=== PATIENT | female | born 1985 | race Caucasian/White ===

== ENCOUNTER 2016-05-12 20:35 | Inpatient (IN) | payer OTHER ==
[2016-05-12] MEDS ORDERED: DEXTROSE 5%-LACTATED RINGERS 1,000 ML IV SCH (23:20)
[2016-05-12] MEDS ORDERED: BUTORPHANOL TARTRATE 1 MG/ML VIAL IVPB ONE (23:30)
[2016-05-12] MEDS ORDERED: PROMETHAZINE HCL 25 MG/1 ML VIAL IVPUSH ONE (23:30)
[2016-05-12 23:34] LABS: BASOPHIL 0.2 % (0-2.0); EOSINOPHIL 0.3 % (0-4.5); MCHC 34.3 g/dl (32.0-36.0); MEAN CELL VOLUME 96.1 fl (80-96); NEUTROPHILS 70.7 % (42.8-82.8); PLATELET COUNT 167 K/MM3 (134-434); RDW 13.1 % (11.6-15.6)
--- NOTE | 2016-05-13 00:01 | HP ---
Past Medical History - Primary Care Physician PCP:: Adriana Roberts - Admission Chief Complaint: 30 yrs ,39.6 weeks gestation admitted in labor, onset at 5.30 pm 05/12/16. previous c/s followed by History of Present Illness: Pnc at 3, [facility] wt gain 33 lbs work Up , B pos, Rpr nr, Rubella pos, Sickle neg , 1 hr Gtt97, Hiv neg , Gbs neg Hbsag -reactive, Hbsag ,confirmatory test is labeled non reactive ID consult ,done By Dr Oliveros at 14 weeks gestation, reported as Hepatiitis B carrier, other tests were done by him , results were not seen in the consult report recommend infant to be given Hep vaccine & Hep immunoglobulin Quantiferon pos, Chest X ray done reported, no active pulm disease pt was given tdap vaccine in 02/2016 & influenza vaccine in 01/2016 us done by M for growth. NT screen & Modified sequential was neg last sono 03/25/16 33.1/7 weeks, 35 %tile growth, Efw 1865 gm(4'2'), Afi13.01 , Bpp8/8 . 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 No h/o Hepatitis in previous pregn ID consult with Dr Oliveros obtained.during pregn) ...: 7 ...Para: 3 ...Term: 3 ...Spon : 1 ...Induced : 2 ...LMP: 08/07/15 ... Weeks Gestation by Dates: 39.6 ...EDC by Dates: 05/13/16 ...EDC by Sono: 05/14/16 Additional OB History: G1 01/17/2005 40 weeks 6lbs [facility] G2 08/06/2006 Primary lftc/s 40 weeks 7 ' [facility] G3 08/15/2009 40 wks 6' [facility] Infectious Disease: No: STD's Psych: No: Addictions, Anxiety, Bipolar, Depression Endocrine: No: Diabetes Mellitus, Hyperthyroidism, Hypothyroidism - Past Surgical History Past Surgical History: Yes: (08/06/2006) Hx Myomectomy: No Hx Transabdominal Cerclage: No - Smoking History Smoking history: Never smoked - Alcohol/Substance Use Hx Alcohol Use: No History of Substance Use: reports: None Home Medications - Allergies Allergies/Adverse Reactions: Allergies Allergy/AdvReac Type Severity Reaction Status Date / Time No Known Allergies Allergy Verified 05/12/16 22:08 - Home Medications Home Medications: Ambulatory Orders Abacavir/Dolutegravir/Lamivudi [Triumeq Tablet] 1 each PO DAILY #30 tablet 11/25 Valsartan/Hydrochlorothiazide [Valsartan-Hctz 320-12.5 mg Tab] 1 each PO DAILY # 30 tablet 11/26/15 Physical Exam - Maternity Vital Signs: Vital Signs Temperature 98.3 F 05/12/16 21:50 Pulse Rate 73 05/12/16 21:50 Respiratory Rate 20 05/12/16 21:50 Blood Pressure 129/71 05/12/16 21:50 O2 Sat by Pulse Oximetry (%) Constitutional: Yes: Well Nourished, Anxious, Moderate Distress Eyes: Yes: WNL HENT: Yes: WNL, Normocephalic Neck: Yes: WNL Cardiovascular: Yes: WNL, Regular Rate and Rhythm Lungs: Clear to auscultation Breast(s): Yes: WNL - Abdominal Exam/OB Fundal Height: 34 Number of Fetuses: Single Presentation: Vertex Contractions: Yes Regularity: Regular (3-4 min) Intensity: Mod/Strong Monitor Mode: External Heart Rate (range): 150-160 Heart Rate Location: [facility] Category: I Accelerations: Uniform Decelerations: None - Vaginal Exam/OB Vaginal Bleediing: Bloody Show Speculum Exam: No Dilatation (cm): 4 Effacement (%): 90 Amniotic Membrane Status: Intact Presentation: Vertex/Position (exam at 10.45 pm 05/12/16) Station: -1 (-2/-1) - Physical Exam Musculoskeletal: Yes: WNL Extremities: Yes: WNL. No: Calf Tenderness Edema: LLE: 2+, RLE: 2+ Integumentary: Yes: Incision (old pfannensteil scar), Tattoos Deep Tendon Reflex Grade: Normal +2 ...Motor Strength: WNL Psychiatric: Yes: WNL, Alert, Oriented - Labs Lab Results: CBC, BMP 05/12/16 23:15 Laboratory Tests 05/12/16 23:15 Sodium 139 Potassium 4.0 Chloride 104 Carbon Dioxide 21 BUN 11 D Creatinine 0.6 Random Glucose 69 L Calcium 9.3 Problem List - Problems (1) 40 weeks gestation of Code(s): Z3A.40 - 40 WEEKS GESTATION OF (2) Previous section complicating Code(s): O34.21 - MATERNAL CARE FOR SCAR FROM PREVIOUS * DO NOT USE * (3) (vaginal after ) Code(s): O34.21 - MATERNAL CARE FOR SCAR FROM PREVIOUS * DO NOT USE * (4) Labor established Code(s): VMY0361 - Assessment/Plan 30 yrs , 39.6 weeks , previous c/s & , in active labor , GBS neg pt is aware of r/b/a not ltd to hemorrhage , infection , distress etc She wants TOLAC Plan stadol + phenrgan for labor analgesia prn
[2016-05-13 00:11] LABS: CALCIUM 9.3 mg/dL (8.5-10.1); CREATININE 0.6 mg/dL (0.55-1.02)
[2016-05-13 00:22] VITALS: BMI 35.9
[2016-05-13 00:27] LABS: INR 0.96 (0.82-1.09); PROTHROMBIN TIME (PATIENT) 10.6 SEC (9.98-11.88)
--- NOTE | 2016-05-13 01:09 | PN ---
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
[2016-05-13] MEDS ORDERED: BENZOCAINE 20% 57 GM BOTTLE TP PRN (01:10)
[2016-05-13] MEDS ORDERED: METHYLERGONOVINE MALEATE 0.2 MG/1 ML AMP IM PRN (01:10)
[2016-05-13] MEDS ORDERED: BENZOCAINE 28 GM HEMORRHOIDAL OINTMENT TP PRN (01:10)
[2016-05-13] MEDS ORDERED: oxyCODONE HCL 5 MG TABLET PO PRN (01:10)
[2016-05-13] MEDS ORDERED: WITCH HAZEL 50% (TUCKS) 40 PAD/JAR PAD TP PRN (01:10)
[2016-05-13] MEDS ORDERED: BISACODYL 10 MG SUPP.RECT RC PRN (01:10)
[2016-05-13] MEDS ORDERED: D5W-LR W/ 20 UNITS OXYTOCIN 1,000 ML IV SCH (01:15)
[2016-05-13] MEDS: ACETAMINOPHEN 325 MG TABLET (FP) PO PRN ×3 (02:10→20:34)
[2016-05-13] MEDS: IBUPROFEN 600 MG TABLET (FP) PO PRN ×2 (08:21→20:32)
[2016-05-13 09:08] LABS: ALBUMIN 3.2 g/dl (3.4-5.0); BILIRUBIN,DIRECT 0.2 mg/dL (0.0-0.2); BILIRUBIN,TOTAL 0.6 mg/dL (0.2-1.0)
[2016-05-13] MEDS: PRENATAL VITAMINS W/ FOLIC ACID TABLET (FP) PO SCH (10:20)
--- NOTE | 2016-05-13 10:24 | PN ---
Progress Note (short form) - Note Progress Note: PPD #0 c/o cramps, vaginal bleeding moderate Ut firm below umblicus, non tender pt wishes to breast feed , lactational pmo consultant notified, she will look into it v/s stable Selected Entries 05/13/16 08:19 Temperature 97.8 F Pulse Rate 62 Blood Pressure 121/77 Ct pp care Problem List - Problems (1) 40 weeks gestation of Code(s): Z3A.40 - 40 WEEKS GESTATION OF (2) Previous section complicating Code(s): O34.21 - MATERNAL CARE FOR SCAR FROM PREVIOUS * DO NOT USE * (3) (vaginal after ) Code(s): O34.21 - MATERNAL CARE FOR SCAR FROM PREVIOUS * DO NOT USE * (4) Labor established Code(s): [id number] -
[2016-05-13] MEDS: FERROUS SO4 325 MG TABLET (FP) PO SCH ×2 (10:30→17:55)
[2016-05-14 07:11] LABS: BASOPHIL 0.5 % (0-2.0); EOSINOPHIL 1.5 % (0-4.5); MCH 33.5 pg (25.7-33.7); MCHC 34.7 g/dl (32.0-36.0); MEAN CELL VOLUME 96.5 fl (80-96); MEAN PLT VOLUME 9.5 fl (7.5-11.1); NEUTROPHILS 61.1 % (42.8-82.8); PLATELET COUNT 132 K/MM3 (134-434); RDW 13.2 % (11.6-15.6); WHITE BLOOD COUNT 10.9 K/mm3 (4.0-10.0)
[2016-05-14] MEDS: FERROUS SO4 325 MG TABLET (FP) PO SCH ×2 (08:28→17:21)
--- NOTE | 2016-05-14 08:36 | PN ---
Post Progress Note - Subjective Subjective: doing well, resting and will breast feed Post Day: 1 Type of Delivery: Vital Signs: Vital Signs Temperature 97.8 F 05/14/16 01:00 Pulse Rate 72 05/14/16 01:00 Respiratory Rate 18 05/14/16 01:00 Blood Pressure 112/56 05/14/16 01:00 O2 Sat by Pulse Oximetry (%) 100 05/13/16 01:30 Breast Exam: Yes: Soft Uterus: Yes: Fundus Firm Abdomen/GI: Yes: Abdomen soft Lochia: Yes: Rubra Lochia, amount: Small Extremities: Yes: Calves non-tender Activity: Ambulating - Labs Labs: CBC WBC 10.9 K/mm3 (4.0-10.0) H 05/14/16 06:00 RBC 3.32 M/mm3 (3.60-5.2) L 05/14/16 06:00 Hgb 11.1 GM/dL (10.7-15.3) D 05/14/16 06:00 Hct 32.0 % (32.4-45.2) L D 05/14/16 06:00 MCV 96.5 fl (80-96) H 05/14/16 06:00 MCHC 34.7 g/dl (32.0-36.0) 05/14/16 06:00 RDW 13.2 % (11.6-15.6) 05/14/16 06:00 Plt Count 132 K/MM3 (134-434) L D 05/14/16 06:00 MPV 9.5 fl (7.5-11.1) 05/14/16 06:00 Neutrophils % 61.1 % (42.8-82.8) 05/14/16 06:00 Lymphocytes % 30.8 % (8-40) D 05/14/16 06:00 Monocytes % 6.1 % (3.8-10.2) 05/14/16 06:00 Eosinophils % 1.5 % (0-4.5) D 05/14/16 06:00 Basophils % 0.5 % (0-2.0) 05/14/16 06:00 Assessment/Plan oob reg diet continue care
[2016-05-14 09:57] VITALS: BP 108/65; PULSE 75; TEMP 97.7
[2016-05-14] MEDS: PRENATAL VITAMINS W/ FOLIC ACID TABLET (FP) PO SCH (10:14)
--- NOTE | 2016-05-14 12:57 | DS ---
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 No: Calf Tenderness Edema: Yes Edema: LLE: Trace, RLE: Trace Integumentary: Yes: WNL, Tattoos Neurological: Yes: WNL, Alert, Oriented ...Motor Strength: WNL Psychiatric: Yes: WNL, Alert, Oriented Labs: CBC, BMP 05/14/16 06:00 05/12/16 23:15 Delivery - Delivery Vaginal Delivery: No Problems, V-Wade Type of Anesthesia: None Episiotomy/Laceration: None EBL (cc): 300 Delivery, Single - Stages of Labor Date 1st Stage Initiatied: 05/12/16 Time 1st Stage Initiated: 17:30 Date 2nd Stage Initiated: 05/13/16 Time 2nd Stage Initiated: 00:40 Date of Delivery: 05/13/16 Time of Delivery: 00:45 Time Placenta Delivered: 00:50 Placenta: Yes: Spontaneous, Uterine Exploration (ut intact & empty) - Condition of Infant Java Sybase Developer/Pneumatic Drum Sander Present: No Gender: Female Weight: 6 lb 6 oz Position: Left, OA Total Hours ROM (Hrs/Mins): 10mins - 1 Minute Total Score: 9 5 Minutes Total Score: 9 - [place] Feeding Plan Initial Plan: Elected not to breastfeed exclusively throughout hospitalization Remarks - Remarks Remarks: 30 yrs , previous c/s & , 40 weeks gestation today admitted in active labor GBS neg HBSAg pos , ID consult was done, diagnose Hepatitis carrier will be given hep vaccine & immunoglobulin intrapartum stadol + phenrgan was given for labor analgesia intrapartum course uneventful . pp course uneventful discharge today in evening Discharge Summary Reason For Visit: LABOR ADMIT Current Active Problems 40 weeks gestation of (Acute) Labor established (Acute) Previous section complicating (Acute) (vaginal after ) (Acute) Condition: Stable - Instructions Diet, Activity, Other Instructions: Post Instructions DIET: Continue good diet high in protein, calcium, and iron rich foods. Drink at least eight (8) glasses of water daily in addition to other fluids. Regular diet MEDICATIONS: Continue vitamins and iron as previously directed. Motrin and Tylenol may be taken for minor discomfort. ACTIVITY: Mild to moderate exercise may be started in two (2) weeks. Take frequent rest periods. Resume normal activity after six (6) week check up. WOUND CARE OF OPERATIVE SITE: Continue use of perineal bottle until vaginal discharge stops. Keep area clean. Shower daily. Keep abdominal wound dry. Report any drainage or redness to physician. Tub baths, tampons and douches are not permitted for [address] Breast feeding & or Bottle feeding BREAST CARE: (For those that are not breast feeding): If engorgement occurs: Wear tight fitting bra. Take Tylenol or Motrin for pain. Apply cold packs (ice in bags to each breast ) FAMILY PLANNING: There are many control alternatives to pursue and they should be discussed at your first office visit. You may resume sexual activity after your six (6) week check up. (Remember, breast feeding is not a contraceptive) NEXT PHYSICIAN APPOINTMENT: Be certain to call for a six (6) week appointment, unless otherwise directed. Call Clinic or got to Emergency Dept if you have any of the following: Heavy vaginal bleeding Painful urination Leg pain Unusual odor noted to vaginal bleeding High fever Red streaking noted on breast Referrals: Adriana Roberts MD [Staff Physician] - Disposition: HOME - Home Medications Comprehensive Discharge Medication List: Ambulatory Orders Vitamins (Sjr) - 1 tab PO DAILY 05/13/16 Acetaminophen [Tylenol .Regular Strength -] 650 mg PO Q3H PRN #0 tablet Ferrous Sulfate [Feosol] 325 mg PO BIDWM ud 05/14/16 Ibuprofen [Motrin -] 200 mg PO Q4H PRN #0 tablet 05/14/16 Vitamins (Sjr) - 1 tab PO DAILY tablet 05/14/16
[2016-05-14] MEDS ORDERED: SENNOSIDES/DOCUSATE COMBO (SENNA PLUS) TABLET (UD) PO PRN (22:00)
[2016-05-19 14:19] LABS: HEP B SURFACE AB Reactive (.)
== END 2016-05-14 18:40 | disposition home or self-care (01) | DRG 560 ==
LOC: JDEL 20:35 → JLDR 22:50 → J3W 05-13 02:22
PROVIDERS: ADMIT Obstetrics & Gynecology; ATTEND Obstetrics & Gynecology
PROC: 10E0XZZ Delivery of Products of Conception, External Approach (ICD-10-PCS; principal; 2016-05-13)
DX: O34.219 Maternal care for unspecified type scar from previous cesarean delivery (principal); Z3A.40 40 weeks gestation of pregnancy; Z37.0 Single live birth
CPT/HCPCS: 36415; 59409; 80048; 80076; 85025; 85610; 85730; 86593; 86704; 86705; 86706; 86707; 86850; 86900; 86901; 87350; 87517

== ENCOUNTER 2019-10-19 07:00 | Inpatient (IN) | payer OTHER ==
[2019-10-19] MEDS ORDERED: ELECTROLYTE-148 SOLN 1,000 ML IV SCH ×2 (09:15→09:30)
[2019-10-19] MEDS ORDERED: BUTORPHANOL TARTRATE 1 MG/ML VIAL IVPB ONE (09:24)
[2019-10-19] MEDS ORDERED: PROMETHAZINE HCL 25 MG/1 ML VIAL IVPB ONE (09:24)
[2019-10-19 09:27] VITALS: BMI 35.2
[2019-10-19 10:10] LABS: BASO % 0.3 % (0-2.0); EOS % 0.3 % (0-4.5); HEMATOCRIT 38.7 % (32.4-45.2); HEMOGLOBIN 13.1 GM/dL (10.7-15.3); LYMPH % 18.3 % (8-40); MCH 33.1 pg (25.7-33.7); MCHC 33.9 g/dl (32.0-36.0); MEAN CELL VOLUME 97.5 fl (80-96); MEAN PLT VOLUME 10.5 fl (7.5-11.1); MONO % 4.5 % (3.8-10.2); NEUT % 76.6 % (42.8-82.8); PLATELET COUNT 141 K/MM3 (134-434); RBC 3.97 M/mm3 (3.60-5.2); RDW 13.3 % (11.6-15.6); WHITE BLOOD COUNT 11.2 K/mm3 (4.0-10.0)
[2019-10-19 10:11] LABS: INR 0.91 (0.83-1.09); PROTHROMBIN TIME (PATIENT) 10.7 SEC (9.7-13.0)
[2019-10-19] MEDS ORDERED: PROMETHAZINE HCL 25 MG/1 ML VIAL ONE (10:11)
[2019-10-19] MEDS ORDERED: BUTORPHANOL TARTRATE 2 MG/ML VIAL ONE (10:11)
[2019-10-19 10:14] LABS: ACTIVATED PTT 26.4 SECONDS (25.2-36.5)
[2019-10-19] MEDS ORDERED: LIDOCAINE HCL 1% PRESERVATIVE FREE - 30ML VIAL ONE (10:22)
[2019-10-19] MEDS ORDERED: OXYTOCIN 20 UNITS in 0.9% NS 20 UNIT/1,000 ML INFUS.BAG IV ONE ×2 (10:23→13:22)
[2019-10-19 10:26] LABS: BLOOD UREA NITROGEN 11.9 mg/dL (7-18); CALCIUM 9.3 mg/dL (8.5-10.1); CREATININE 0.7 mg/dL (0.55-1.3)
--- NOTE | 2019-10-19 11:33 | HP ---
Past Medical History - Primary Care Physician PCP:: Adriana Roberts - Admission Chief Complaint: 34 yrs ,previous c/s f/b 2 , onset LP since 6.30 AM , requests for TOLAC History of Present Illness: pnc at 2, [facility] , wt gain 40 lbs panel : 03/16/19 B Pos, hbsag neg, rubella pos, hiv neg , t,pallidum neg , sickle neg , hep c nr 07/31/19 1r gtt 93 ,Quantiferon -pos 09/21/19 H/H 12.0/34,0. PLT 182, ct/gc neg, GBS neg, hiv neg 10/05/19 TDAP taken. us done report not on chart History Source: Patient, Medical Record Limitations to Obtaining History: No Limitations - Past Medical History STONEMASON: No: CVA, Seizure Cardiovascular: No: HTN Pulmonary: No: Asthma Gastrointestinal: Yes: Constipation Hepatobiliary: Yes: Hepatitis B (Hep BSAg pos on 10/14/2015. No h/o Hepatitis in previous pregn ID consult with Dr Oliveros obtained.during pregn) Renal/: No: UTI ...: 8 ...Para: 4 (G1 [facility]/17/05 6[facility], G2 08/06/06 pc/s fetaldistress [facility] G3 6' [facility]. G4 05/13/16 , 6'6' [facility]) ...Term: 4 ...: 4 ...Spon : 1 ...Induced : 2 ...Living Children: 4 ...LMP: 12/02/18 ... Weeks Gestation by Dates: 40.1 ...EDC by Dates: 10/18/19 ...EDC by Sono: 10/18/19 (40,1 WKS ) Heme/Onc: No: Anemia Infectious Disease: Yes: Other (h/o quantiferon pos). No: AIDS, HIV, STD's Psych: No: Addictions, Anxiety, Bipolar, Depression, Panic, Psychosis, Schizophrenia, Other Endocrine: No: Diabetes Mellitus, Hyperthyroidism, Hypothyroidism - Past Surgical History Past Surgical History: Yes: (08/06/2006) Hx Myomectomy: No Hx Transabdominal Cerclage: No - Smoking History Smoking history: Never smoked Have you smoked in the past 12 months: No - Alcohol/Substance Use Hx Alcohol Use: No History of Substance Use: reports: None Home Medications - Allergies Allergies/Adverse Reactions: Allergies Allergy/AdvReac Type Severity Reaction Status Date / Time No Known Allergies Allergy Verified 05/12/16 22:08 - Home Medications Home Medications: Ambulatory Orders Vitamins (Sjr) - 1 tab PO DAILY 05/13/16 Review of Systems - Review of Systems Constitutional: reports: Other (lbaor pain) Eyes: reports: No Symptoms HENT: reports: No Symptoms Neck: reports: No Symptoms Cardiovascular: reports: No Symptoms Respiratory: reports: No Symptoms Gastrointestinal: reports: No Symptoms Genitourinary: reports: No Symptoms Breasts: reports: No Symptoms Reported Musculoskeletal: reports: No Symptoms Integumentary: reports: No Symptoms Neurological: reports: No Symptoms Endocrine: reports: No Symptoms Hematology/Lymphatic: reports: No Symptoms Psychiatric: reports: No Symptoms Pain Intensity: 9 Physical Exam - Maternity Vital Signs: Vital Signs Temperature 98.6 F 10/19/19 09:13 Pulse Rate 76 10/19/19 09:13 Respiratory Rate 20 10/19/19 09:13 Blood Pressure 120/76 10/19/19 09:13 O2 Sat by Pulse Oximetry (%) Selected Entries 10/19/19 09:11 Weight 205 lb Constitutional: Yes: Well Nourished, Moderate Distress, Obese Eyes: Yes: WNL HENT: Yes: WNL, Normocephalic Neck: Yes: WNL Cardiovascular: Yes: WNL Lungs: Clear to auscultation Breast(s): Yes: WNL - Abdominal Exam/OB Fundal Height: 36 Number of Fetuses: Single Presentation: Vertex Contractions: Yes Regularity: Irregular Intensity: Mod/Strong (1-3) Monitor Mode: External Heart Rate (range): 135-145 Heart Rate Location: [facility] Category: I Accelerations: Non-Uniform Decelerations: None - Vaginal Exam/OB Vaginal Bleeding: No Speculum Exam: No Dilatation (cm): 6 Effacement (%): 90 Amniotic Membrane Status: Intact Presentation: Vertex/Position (exam at 10.09 AM) Station: -1 - Physical Exam Musculoskeletal: Yes: WNL Extremities: Yes: WNL. No: Calf Tenderness Edema: Yes Edema: LLE: 2+, RLE: 2+ Integumentary: Yes: WNL Deep Tendon Reflex Grade: Normal +2 ...Motor Strength: WNL Psychiatric: Yes: WNL, Alert, Oriented - Labs Lab Results: CBC, BMP 10/19/19 09:35 10/19/19 09:35 Laboratory Tests 10/19/19 10/19/19 09:35 09:35 PT with INR 10.70 INR 0.91 PTT (Actin FS) 26.4 Syphilis Serology Non-reactive Hemorrhage Risk Assessment - Risk Factors Medium Risk Factors: Yes: Prior , uterine surgery,or multiple laparotomies Risk Score: 1 Risk Level: Medium Risk Problem List - Problems (1) Post-term , 40-42 weeks of gestation Code(s): O48.0 - POST-TERM (2) Previous section complicating Code(s): O34.21 - MATERNAL CARE FOR SCAR FROM PREVIOUS * DO NOT USE * (3) (vaginal after ) Code(s): O34.21 - MATERNAL CARE FOR SCAR FROM PREVIOUS * DO NOT USE * Assessment/Plan y34 yrs , previous c/section , f/b 2 in active labor, requests for TOLAC . , gbs neg . pt is aware of possible r/b/a not ltd to rupture ut, hemorrhage, infection, distress. Plan ct TOLAC requests for stadol + phenrgan for labor analgeisa
[2019-10-19] MEDS ORDERED: WITCH HAZEL 50% (TUCKS) 40 PAD/JAR PAD TP PRN (12:43)
[2019-10-19] MEDS ORDERED: BENZOCAINE 28 GM HEMORRHOIDAL OINTMENT TP PRN (12:43)
[2019-10-19] MEDS ORDERED: METHYLERGONOVINE MALEATE 0.2 MG/1 ML AMP IM PRN (12:43)
[2019-10-19] MEDS ORDERED: BENZOCAINE 20% 57 GM BOTTLE TP PRN (12:43)
[2019-10-19] MEDS ORDERED: BISACODYL 10 MG SUPP.RECT RC PRN (12:43)
[2019-10-19] MEDS ORDERED: OXYTOCIN 20 UNITS in 0.9% NS 20 UNIT/1,000 ML INFUS.BAG IV SCH (12:45)
[2019-10-19 12:52] LABS: CORD BASE EXCESS -4.6 mmol/L (0-2); CORD HCO3 20.8 mmHg (20-29); CORD PCO2 39.5 mmHg (30-78); CORD pH 7.339 (7.14-7.44)
--- NOTE | 2019-10-19 12:54 | PN ---
Progress Note (short form) - Note Progress Note: 12.05 PM: 9/100/+1 AROM moderate meconium , fhr 130-145 cat-1 , U 2-3 min Selected Entries 10/19/19 09:13 Temperature 98.6 F Pulse Rate 76 Blood Pressure 120/76 10.20 AM :2mg stadol + 25 mg phenrgan stat given 12.10 PM10/100%/VX +2 , pushing Problem List - Problems (1) Post-term , 40-42 weeks of gestation Code(s): O48.0 - POST-TERM (2) Previous section complicating Code(s): O34.21 - MATERNAL CARE FOR SCAR FROM PREVIOUS * DO NOT USE * (3) (vaginal after ) Code(s): O34.21 - MATERNAL CARE FOR SCAR FROM PREVIOUS * DO NOT USE *
--- NOTE | 2019-10-19 13:01 | PN ---
Delivery - Delivery Vaginal Delivery: V-Wade (pt delievered vx, jethro position , suction of mouth & nose done at perineum , before delivery of shoulders. Shoulders delievered without difficulty .. Trivascular cord , cord segment taken for cord gas & cord blood collected . perineum, vagina cx & uterus intact .. ut intermittently relaxed , bimanual massage given ,Methergine IM given at 12.27 PM .bladder catheterized emptied 200 ml urine , ebl 400 ml . MeU done ut intact, empty .) EBL (cc): 400 (cat output 200 ml flako color ) Delivery, Single - Stages of Labor Date 1st Stage Initiatied: 10/19/19 Time 1st Stage Initiated: 06:30 Date 2nd Stage Initiated: 10/19/19 Time 2nd Stage Initiated: 12:10 Date of Delivery: 10/19/19 Time of Delivery: 12:17 Date Placenta Delivered: 10/19/19 Time Placenta Delivered: 12:25 Placenta: Yes: Spontaneous, Uterine Exploration - Condition of Infant Gender: Female Weight: 8 lb Position: Left, OA Total Hours ROM (Hrs/Mins): 20 min mec mod - 1 Minute Total Score: 8 5 Minutes Total Score: 9 - Feeding Plan Initial Plan: Elected not to breastfeed exclusively throughout hospitalization Remarks - Remarks Remarks: 34 yrs , previous c/s followed by successful x2 admitted in labor . GBS neg Pnc at [address] [place] [address] labor analgesia 2mg Stadol+ 25mg phenrgan was given intrapartum course uneventful v/s stable
[2019-10-19] MEDS: FERROUS SO4 325 MG TABLET (FP) PO SCH (17:50)
[2019-10-19] MEDS: IBUPROFEN 600 MG TABLET (FP) PO PRN (18:17)
[2019-10-19] MEDS: ACETAMINOPHEN 325 MG TABLET (FP) PO PRN (18:17)
[2019-10-20] MEDS: IBUPROFEN 600 MG TABLET (FP) PO PRN (00:52)
[2019-10-20] MEDS: ACETAMINOPHEN 325 MG TABLET (FP) PO PRN (00:53)
--- NOTE | 2019-10-20 07:32 | PN ---
Progress Note (short form) - Note Progress Note: ppd 1s/p . doing well, no c/o CBC, BMP 10/19/19 09:35 10/19/19 09:35 Last Vital Signs Temp Pulse Resp BP Pulse Ox 98.7 F 60 18 106/58 L 10/20/19 05:54 10/20/19 05:54 10/20/19 05:54 10/20/19 05:54 abdomen soft, no distension, no cva uterus firm, non tender lochia mild no calf tenderness plan ambulate cbc plan for d/c home in am
[2019-10-20 08:18] LABS: BASO % 0.4 % (0-2.0); EOS % 0.8 % (0-4.5); HEMATOCRIT 31.4 % (32.4-45.2); HEMOGLOBIN 10.9 GM/dL (10.7-15.3); LYMPH % 23.3 % (8-40); MCHC 34.7 g/dl (32.0-36.0); MEAN CELL VOLUME 98.1 fl (80-96); MEAN PLT VOLUME 10.8 fl (7.5-11.1); MONO % 6.1 % (3.8-10.2); NEUT % 69.4 % (42.8-82.8); PLATELET COUNT 122 K/MM3 (134-434); RDW 13.4 % (11.6-15.6); WHITE BLOOD COUNT 10.7 K/mm3 (4.0-10.0)
[2019-10-20] MEDS: FERROUS SO4 325 MG TABLET (FP) PO SCH ×2 (09:06→18:30)
[2019-10-20] MEDS: PRENATAL VITAMINS W/ FOLIC ACID TABLET (FP) PO SCH (09:06)
[2019-10-20] MEDS ORDERED: SENNOSIDES/DOCUSATE COMBO (SENNA PLUS) TABLET (UD) PO PRN (22:00)
--- NOTE | 2019-10-21 06:16 | DS ---
Physical Exam-ORE DIGGER Vital Signs: Vital Signs Temperature 98 F 10/20/19 20:51 Pulse Rate 64 10/20/19 20:51 Respiratory Rate 20 10/20/19 20:51 Blood Pressure 115/70 10/20/19 20:51 O2 Sat by Pulse Oximetry (%) 98 10/20/19 20:51 Constitutional: Yes: Well Nourished, Obese Eyes: Yes: WNL HENT: Yes: WNL Neck: Yes: WNL, Rigid Respiratory: Yes: WNL Gastrointestinal: Yes: WNL ...Rectal Exam: Yes: WNL Renal/: Yes: WNL, Urethral Discharge External Genitalia: Yes: Normal ....Post : Yes: Uterus firm (below umblicus), Uterus non-tender, Moderate lochia rubra Breast(s): Yes: WNL (BF & bottle feeding . breast not engorged) Musculoskeletal: Yes: WNL Extremities: Yes: WNL. No: Calf Tenderness Edema: LLE: Trace, RLE: Trace Neurological: Yes: WNL, Alert, Oriented ...Motor Strength: WNL Psychiatric: Yes: WNL, Alert, Oriented Labs: CBC, BMP 10/20/19 07:21 10/19/19 09:35 Delivery - Delivery Vaginal Delivery: V-Wade (pt delievered vx, jethro position , suction of mouth & nose done at perineum , before delivery of shoulders. Shoulders delievered without difficulty .. Trivascular cord , cord segment taken for cord gas & cord blood collected . perineum, vagina cx & uterus intact .. ut intermittently relaxed , bimanual massage given ,Methergine IM given at 12.27 PM .bladder catheterized emptied 200 ml urine , ebl 400 ml . MeU done ut intact, empty .) Episiotomy/Laceration: None EBL (cc): 400 Delivery, Single - Stages of Labor Date 1st Stage Initiatied: 10/19/19 Time 1st Stage Initiated: 06:30 Date 2nd Stage Initiated: 10/19/19 Time 2nd Stage Initiated: 12:10 Date of Delivery: 10/19/19 Time of Delivery: 12:17 Time Placenta Delivered: 12:25 Placenta: Yes: Spontaneous, Uterine Exploration - Condition of Curriculum And Assessment Director/Lap Grinder Present: No Infant Gender: Female Weight: 8 lb Position: Left, OA Total Hours ROM (Hrs/Mins): 20 min - 1 Minute Total Score: 9 5 Minutes Total Score: 8 - Feeding Plan Initial Plan: Elected not to breastfeed exclusively throughout hospitalization Remarks - Remarks Remarks: 34 yrs , previous c/s followed by successful x2 admitted in labor . GBS neg Pnc at , [facility] labor analgesia 2mg Stadol+ 25mg phenrgan was given intrapartum course uneventful v/s stable pp course uneventful discharge today Discharge Summary Problems reviewed: Yes Reason For Visit: LABOR ADMISSION Current Active Problems Post-term , 40-42 weeks of gestation (Acute) , delivered, current hospitalization (Acute) Condition: Stable - Instructions Diet, Activity, Other Instructions: Post Instructions DIET: Continue good diet high in protein, calcium, and iron rich foods. Drink at least eight (8) glasses of water daily in addition to other fluids. ___ Regular diet MEDICATIONS: Continue vitamins and iron as previously directed. Motrin and Tylenol may be taken for minor discomfort. ACTIVITY: Mild to moderate exercise may be started in two (2) weeks. Take frequent rest periods. Resume normal activity after six (6) week check up. WOUND CARE OF OPERATIVE SITE: Continue use of perineal bottle until vaginal discharge stops. Keep area clean. Shower daily. Keep abdominal wound dry. Report any drainage or redness to physician. Tub baths, tampons and douches are not permitted for [address] Breast feeding & or Bottle feeding BREAST CARE: (For those that are not ): If engorgement occurs: Wear tight fitting bra. Take Tylenol or Motrin for pain. Apply cold packs (ice in bags to each breast ) FAMILY PLANNING: There are many control alternatives to pursue and they should be discussed at your first office visit. You may resume sexual activity after your six (6) we ek check up. (Remember, is not a contraceptive) NEXT PHYSICIAN APPOINTMENT: Be certain to call for a three (3) week appointment, unless otherwise directed. Call Clinic or got to Emergency Dept if you have any of the following: Heavy vaginal bleeding Painful urination Leg pain Unusual odor noted to vaginal bleeding High fever Red streaking noted on breast Referrals: Adriana Roberts MD [Staff Physician] - Disposition: HOME - Home Medications Comprehensive Discharge Medication List: Ambulatory Orders Vitamins (Sjr) - 1 tab PO DAILY 05/13/16 Acetaminophen [Tylenol .Regular Strength -] 650 mg PO Q3H PRN tablet 10/19/19 Ferrous Sulfate [Feosol] 325 mg PO BIDWM #60 tab 10/19/19 Ibuprofen [Motrin -] 600 mg PO Q4H PRN #20 tablet 10/19/19 Miscellaneous Medical Supply [Breast Pump, Electronic] 1 each NR ASDIR #1 unit 10/19/19 Vitamins (Sjr) - 1 tab PO DAILY #30 tablet 10/19/19
[2019-10-21] MEDS: FERROUS SO4 325 MG TABLET (FP) PO SCH (09:57)
[2019-10-21] MEDS: ACETAMINOPHEN 325 MG TABLET (FP) PO PRN (10:06)
[2019-10-21] MEDS: PRENATAL VITAMINS W/ FOLIC ACID TABLET (FP) PO SCH (10:07)
[2019-10-21] MEDS: IBUPROFEN 600 MG TABLET (FP) PO PRN (10:07)
[2019-10-21 12:19] VITALS: BP 128/81; PULSE 70; TEMP 98.5
== END 2019-10-21 15:00 | disposition home or self-care (01) | DRG 560 ==
LOC: JDEL 07:00 → JLDR 08:36 → J3W 16:00
PROVIDERS: ADMIT Obstetrics & Gynecology; ATTEND Obstetrics & Gynecology
PROC: 10E0XZZ Delivery of Products of Conception, External Approach (ICD-10-PCS; principal; 2019-10-19)
DX: O48.0 Post-term pregnancy (principal); O34.219 Maternal care for unspecified type scar from previous cesarean delivery; O99.214 Obesity complicating childbirth; Z3A.40 40 weeks gestation of pregnancy; Z37.0 Single live birth
CPT/HCPCS: 36415; 36600; 59409; 71046-TC-FY; 80048; 82803; 85025; 85610; 85730; 86780; 86850; 86900; 86901; U0003

== ENCOUNTER 2022-11-17 19:08 | Emergency (ER) | payer OTHER ==
[2022-11-17 19:18] VITALS: BP 130/68; PULSE 77; RESP 18; TEMP 98.2; BMI 29.2
== END 2022-11-17 22:27 | disposition home or self-care (01) ==
LOC: JER 19:08
DX: K80.20 Calculus of gallbladder without cholecystitis without obstruction (principal); R10.13 Epigastric pain; R61 Generalized hyperhidrosis
CPT/HCPCS: 84703; 99283-25

== ENCOUNTER 2023-12-31 13:29 | Observation (INO) | payer OTHER ==
[2023-12-31 15:28] LABS: BASO % 0.6 % (0-2.0); EOS % 0.1 % (0-4.5); HEMATOCRIT 40.4 % (32.4-45.2); HEMOGLOBIN 13.8 GM/dL (10.7-15.3); LYMPH % 23.6 % (8-40); MCH 32.4 pg (25.7-33.7); MCHC 34.2 g/dl (32.0-36.0); MEAN CELL VOLUME 94.7 fl (80-96); MEAN PLT VOLUME 8.6 fl (7.5-11.1); MONO % 6.2 % (3.8-10.2); NEUT % 69.5 % (42.8-82.8); PLATELET COUNT 169 10^3/uL (134-434); RBC 4.27 M/mm3 (3.60-5.2); RDW 13.1 % (11.6-15.6); WHITE BLOOD COUNT 6.7 K/mm3 (4.0-10.0)
[2023-12-31 15:33] LABS: EPI CELLS 23 /uL (0-25.1); HYALINE CASTS 6 /uL (0-3.1); PH,URINE 5.5 (5.0-8.0); URINE APPEARANCE CLOUDY; URINE BILIRUBIN 1+ (NEGATIVE); URINE COLOR DK YELLOW; URINE GLUCOSE (UA) NEGATIVE (NEGATIVE); URINE KETONE 3+ (NEGATIVE); URINE LEUK ESTERASE NEGATIVE (NEGATIVE); URINE NITRITE NEGATIVE (NEGATIVE); URINE PROTEIN 1+ (NEGATIVE); URINE RBC 15 /uL (0-23.9); URINE WBC 16 /uL (0-25.8)
[2023-12-31 15:34] LABS: HCG,QUALITATIVE URINE Negative
[2023-12-31 15:35] LABS: URINE BACTERIA 103 /uL (0-1359)
[2023-12-31 15:53] LABS: COCAINE, UR NEGATIVE (NEGATIVE); METHADONE, UR NEGATIVE (NEGATIVE); OPIATES, URI NEGATIVE (NEGATIVE); PHENCYCLIDINE,URINE NEGATIVE (NEGATIVE); URINE AMPHETAMINES NEGATIVE (NEGATIVE); URINE BARBITURATES NEGATIVE (NEGATIVE); URINE BENZODIAZEPINES NEGATIVE (NEGATIVE)
[2023-12-31 15:53] LABS: POTASSIUM 3.8 mmol/L (3.5-5.1)
[2023-12-31 15:56] LABS: BLOOD UREA NITROGEN 16.7 mg/dL (7-18)
[2023-12-31 15:59] LABS: CREATININE 0.7 mg/dL (0.55-1.3)
[2023-12-31 16:00] LABS: TOT PROT 7.7 g/dl (6.4-8.2)
[2023-12-31] MEDS ORDERED: MIRTAZAPINE 15 MG TABLET (FP) ONE (22:04)
[2023-12-31] MEDS: MIRTAZAPINE 15 MG TABLET (FP) PO SCH (22:07)
[2024-01-01] MEDS ORDERED: MIRTAZAPINE 15 MG TABLET (FP) ONE (22:06)
[2024-01-02] MEDS ORDERED: MIRTAZAPINE 15 MG TABLET (FP) ONE (22:04)
[2024-01-03] MEDS ORDERED: ENOXAPARIN NA (PORCINE) 40 MG/0.4 ML DISP.SYRIN SQ ONE (10:01)
[2024-01-03] MEDS: ENOXAPARIN NA (PORCINE) 40 MG/0.4 ML DISP.SYRIN SQ SCH (10:05)
[2024-01-03 23:07] VITALS: RESP 18; BMI 25.9
[2024-01-04 09:02] LABS: HEMATOCRIT 43.3 % (32.4-45.2); HEMOGLOBIN 14.6 GM/dL (10.7-15.3); MCH 32.3 pg (25.7-33.7); MCHC 33.7 g/dl (32.0-36.0); MEAN CELL VOLUME 95.8 fl (80-96); MEAN PLT VOLUME 9.7 fl (7.5-11.1); PLATELET COUNT 162 10^3/uL (134-434); RBC 4.53 M/mm3 (3.60-5.2); RDW 13.3 % (11.6-15.6); WHITE BLOOD COUNT 6.3 K/mm3 (4.0-10.0)
[2024-01-04 09:21] LABS: POTASSIUM 3.9 mmol/L (3.5-5.1)
[2024-01-04 09:29] LABS: BLOOD UREA NITROGEN 21.2 mg/dL (7-18); CALCIUM 9.4 mg/dL (8.5-10.1)
[2024-01-04 09:32] LABS: BILIRUBIN,TOTAL 0.9 mg/dL (0.2-1); CREATININE 0.7 mg/dL (0.55-1.3)
[2024-01-04 09:33] LABS: TOT PROT 7.7 g/dl (6.4-8.2)
[2024-01-04] MEDS ORDERED: ACETAMINOPHEN 325 MG TABLET (FP) PO PRN (14:51)
[2024-01-05 06:36] VITALS: TEMP 98.2
[2024-01-05 06:38] VITALS: BP 114/79; PULSE 84
== END 2024-01-05 08:41 ==
LOC: JER 13:29 → JERBED 01-03 07:16 → J8W 01-03 19:31
PROVIDERS: ADMIT Internal Medicine; ATTEND Nurse Practitioner Family
PROC: 3E023GC Introduction of Other Therapeutic Substance into Muscle, Percutaneous Approach (ICD-10-PCS; principal; 2024-01-03)
DX: F32.3 Major depressive disorder, single episode, severe with psychotic features (principal); R45.89 Other symptoms and signs involving emotional state; G47.00 Insomnia, unspecified; Z90.49 Acquired absence of other specified parts of digestive tract; Z29.89 Encounter for other specified prophylactic measures
CPT/HCPCS: 36415; 80053; 80307; 81003; 84443; 84703; 85025; 85027; 87635; 93005; 93010; 96372; 99285-25; G0378